=== PATIENT | female | born 1995 | race Caucasian/White ===

== ENCOUNTER 2019-05-30 11:31 | Emergency (ER) | payer MEDICAID ==
[~2019-05-30] VITALS: Ht 162.6 cm; Wt 72.6 kg
[2019-05-30 11:48] VITALS: BP 132/72
--- NOTE | 2019-05-30 11:48 | NUR ---
PT AMBULATED TO BED WITH FAMILY/FRIEND
--- NOTE | 2019-05-30 12:10 | NUR ---
24 Y/O FEMALE PRESENTED WITH RU BACK/RUE PAIN, "ANTS" TINGLING FEELING SENSATION X2 DAYS. PER PT EXPERIENCED FACIAL DROOP AND RUE WEAKNESS AT 0200 HOURS TODAY. PER NEURO ASSESSMENT FACIAL SYMMETRICAL, PUPILS PERRLA, CLEAR SPEECH. ONLY WEAKNESS NOTED ON RUE ON GAS DISPATCHER 2/5 COMPARED TO LUE 4/5. PT WITH STEADY GAIT, AMBULATORY WITH NO PROBLEM. PT HAS NKA. MEDICAL HX OF ANEMIA. NO MEDS ON REG BASIS. NO N/V/D. SIDE RAIL X1. FAMILY AT BEDSIDE.
--- NOTE | 2019-05-30 12:57 | NUR ---
Dr. Lazaro is evaluating the patient at bedside.
--- NOTE | 2019-05-30 13:26 | NUR ---
PT TO CT VIA WHEELCHAIR.
--- NOTE | 2019-05-30 13:42 | NUR ---
Patient returned from CT scan. RN re-evaluating patient at bedside.
--- NOTE | 2019-05-30 13:42 | NUR ---
PT BACK FROM CT
--- NOTE | 2019-05-30 13:43 | NUR ---
PT AMBULATED TO THE RESTROOM TO PROVIDE URINE SAMPLE.
[2019-05-30 14:22] LABS: BASOPHILS # (AUTO) 0.1 K/uL (0.00-0.22); BASOPHILS % (AUTO) 1.4 % (0.0-2.0); EOSINOPHILS # (AUTO) 0.1 K/uL (0-0.4); EOSINOPHILS % (AUTO) 2.3 % (0.0-4.0); HEMATOCRIT 40.1 % (36-48); HEMOGLOBIN 13.5 g/dL (12.0-16.0); LYMPHOCYTES # (AUTO) 1.7 K/uL (2.5-16.5); LYMPHOCYTES % (AUTO) 32.9 % (20.5-51.1); MEAN CORPUSCULAR HEMOGLOBIN 29 pg (27-31); MEAN CORPUSCULAR HGB CONC 34 g/dL (33-37); MEAN CORPUSCULAR VOLUME 85.8 fL (80-94); MONOCYTES # (AUTO) 0.5 K/uL (0.8-1.0); MONOCYTES % (AUTO) 8.8 % (1.7-9.3); NEUTROPHILS # (AUTO) 2.9 K/uL (1.8-7.7); NEUTROPHILS % (AUTO) 54.6 % (42.2-75.2); PLATELET COUNT (AUTO) 203 K/uL (140-450); RED BLOOD CELL COUNT(AUTO) 4.67 MIL/uL (4.20-5.40); RED CELL DISTRIBUTION WIDTH 14.9 % (11.6-13.7); WHITE BLOOD COUNT (AUTO) 5.3 K/uL (4.8-10.8)
[2019-05-30 14:59] LABS: ANION GAP 15.4 (8-16); CARBON DIOXIDE 24.4 mmol/L (21-32); CREATININE 0.6 mg/dL (0.6-1.3); POTASSIUM 3.8 mmol/L (3.5-5.1)
[2019-05-30 15:06] LABS: ALBUMIN 3.9 g/dL (3.4-5.0); TOTAL BILIRUBIN 0.3 mg/dL (0.0-1.0)
--- NOTE | 2019-05-30 15:56 | NUR ---
Patient discharged with v/s stable. Written and verbal after care instructions given and explained. Patient alert, oriented and verbalized understanding of instructions. Ambulatory with steady gait. All questions addressed prior to discharge. ID band removed. Patient advised to follow up with PMD. Rx of tylenol and ibuprofen given. Patient educated on indication of medication including possible reaction and side effects. Opportunity to ask questions provided and answered.
[2019-05-30 15:57] VITALS: BP 98/77
== END 2019-05-30 15:56 | disposition home or self-care (01) ==
LOC: EEVIPCON 11:31 → MED 11:31
DX: S16.1XXA Strain of muscle, fascia and tendon at neck level, initial encounter (principal); X58.XXXA Exposure to other specified factors, initial encounter; Y93.89 Activity, other specified; Y92.89 Other specified places as the place of occurrence of the external cause; Y99.8 Other external cause status; D64.9 Anemia, unspecified
CPT/HCPCS: 36415; 72125; 80053; 81025; 85025; 99284